=== PATIENT | male | born 1990 | race African-American/Black ===

== ENCOUNTER 2018-12-27 11:38 | Emergency (ER) | payer MEDICAID ==
[~2018-12-27] VITALS: Ht 182.9 cm; Wt 77.0 kg
[2018-12-27 12:21] VITALS: BP 121/72
[2018-12-27] MEDS ORDERED: BACITRACIN ZINC OINT UDPKT TOP ONE (12:45)
[2018-12-27] MEDS ORDERED: LIDOCAINE HCL/PF 1% 10 MG/ML 5ML VIAL IJ ONE (12:45)
== END 2018-12-27 13:24 | disposition home or self-care (01) ==
LOC: ER 11:38
DX: S01.112A Laceration without foreign body of left eyelid and periocular area, initial encounter (principal); S00.03XA Contusion of scalp, initial encounter; W20.8XXA Other cause of strike by thrown, projected or falling object, initial encounter; Y93.89 Activity, other specified; Y92.89 Other specified places as the place of occurrence of the external cause; Y99.8 Other external cause status
CPT/HCPCS: 12011; 99283; J3490

== ENCOUNTER 2019-01-01 11:26 | Emergency (ER) | payer MEDICAID ==
[~2019-01-01] VITALS: Ht 188 cm; Wt 78.0 kg
[2019-01-01 13:11] VITALS: BP 117/58
== END 2019-01-01 13:13 | disposition home or self-care (01) ==
LOC: ER 11:26
DX: S01.112D Laceration without foreign body of left eyelid and periocular area, subsequent encounter (principal); X58.XXXD Exposure to other specified factors, subsequent encounter
CPT/HCPCS: 99281

== ENCOUNTER 2021-01-12 14:30 | Emergency (ER) | payer MEDICAID ==
[~2021-01-12] VITALS: Ht 188 cm; Wt 73.0 kg
[2021-01-12 14:57] VITALS: BP 117/70
[2021-01-12] MEDS ORDERED: AMOX-494 MT (15:13)
[2021-01-12] MEDS ORDERED: IBUP-2029 MT (15:13)
[2021-01-12] MEDS ORDERED: IBUPROFEN 600MG TABLET PO ONE (15:15)
== END 2021-01-12 15:26 | disposition home or self-care (01) ==
LOC: ER 14:30
DX: H66.91 Otitis media, unspecified, right ear (principal); F12.10 Cannabis abuse, uncomplicated
CPT/HCPCS: 99283